=== PATIENT | female | born 1975 | race Hispanic/Latino ===

== ENCOUNTER 2016-08-21 15:21 | Emergency (ER) | payer OTHER, SELFPAY ==
[2016-08-21] MEDS ORDERED: traMADol HCl 50 MG TAB ONE (15:38)
[2016-08-21] MEDS ORDERED: Cyclobenzaprine 10 MG TAB ONE (15:39)
[2016-08-21 15:52] LABS: Bilirubin Negative (Negative); Blood, Urine Large (Negative); Glucose, Urine (Dipstick) Negative (Negative); Ketone, Urine Trace mg/dL (Negative); Nitrite Negative (Negative); Protein, Urine (Dipstick) > or equal to 300 mg/dL (Neg-Trace)
[2016-08-21 16:00] LABS: Bacteria/HPF Rare-Few HPF (None Seen); RBC/HPF 21-50 HPF (0-3); Squamous Epithelial 0-3 HPF (0-3); WBC/HPF 21-50 HPF (0-3)
[2016-08-21 16:01] LABS: Yeast-All Forms Rare HPF (None Seen)
[2016-08-21] MEDS ORDERED: Nitrofurantoin Monohyd/M-Cryst 100 MG CAP ONE (16:50)
--- NOTE | 2016-08-21 20:43 | CT ---
CT OF THE ABDOMEN AND PELVIS WITHOUT CONTRAST 08/21/16 Comparison is made with a 03/21/10 CT scan. The lung bases are clear. The liver, spleen, pancreas, adrenal glands and abdominal aorta show no ac [place] findings. Bilateral renal calculi are present. They are really forming staghorn calculi in the r enal pelves. The one on the left is the largest and it has increase in size since the 2009. Today, i t measures about 2.6 x 1.4 cm. Additionally, there is a vague 2.5 cm rounded low density area in the inferior pole of the left kidney that I do not seen in 2009. This is probably just a cyst, however, an ultrasound should be done electively to assess it further. If the patient has not seen a urologi st in recent times, then that is advised as well. A bright calcific density in the mj hepatis is presumed to be clips from a prior cholecystectomy. No ureteral calculi are seen. The bowel is nondistended and shows no dilation or inflammatory change. The appendix appears normal. No free air or free fluid was seen. CT of the pelvis shows a small calcification in the uterus that was not present previously. This may be the beginnings of a calcified fibroid. No adnexal masses or free fluid were seen in the pelvis. IMPRESSION: 1. Bilateral nonobstructing renal calculi that are forming in a staghorn fashion. The major shira culi have grown over time, particularly in the left kidney. 2. 2.5 cm low density area in the lower pole of the left kidney. Ultrasound needed to investiga te if this is a cyst or solid. 3. Possible calcified uterine fibroid. Findings and recommendations discussed with Dr. Brown at 1638 on 08/21/16. POS: HOME
== END 2016-08-21 16:55 | disposition home or self-care (01) ==
LOC: BURERS 15:21
DX: N20.0 Calculus of kidney (principal); N39.0 Urinary tract infection, site not specified; F17.210 Nicotine dependence, cigarettes, uncomplicated; Z79.899 Other long term (current) drug therapy
CPT/HCPCS: 74176; 81003; 81015; 81025; 87086

== ENCOUNTER 2019-05-29 17:23 | Emergency (ER) | payer OTHER, SELFPAY ==
--- NOTE | 2019-05-29 22:36 | RAD ---
RIGHT KNEE FOUR VIEWS: 05/29/19 There is some mild bony spurring in the medial compartment of the knee. There is no significant joint space narrowing as of yet. No fracture or large joint effusion was seen. A few tiny osteophytes are present in the patellofemoral joint. IMPRESSION: Mild but early arthritic changes. POS: HOME
== END 2019-05-29 18:07 | disposition home or self-care (01) ==
LOC: BURERS 17:23
DX: M17.11 Unilateral primary osteoarthritis, right knee (principal); F17.210 Nicotine dependence, cigarettes, uncomplicated; Z87.442 Personal history of urinary calculi; Z79.899 Other long term (current) drug therapy